=== PATIENT | female | born 1980 | race Caucasian/White ===

== ENCOUNTER 2023-03-09 15:26 | Emergency (ER) | payer OTHER ==
[~2023-03-09] VITALS: Ht 172.7 cm; Wt 87.0 kg
[2023-03-09 15:33] VITALS: TEMP 98.4; O2SAT 100
[2023-03-09] MEDS ORDERED: IBUP-2029 MT (17:55)
[2023-03-09] MEDS ORDERED: AMOX1TAB16 MT (17:55)
[2023-03-09 18:00] VITALS: BP 139/86; PULSE 93; RESP 18
[2023-03-09] MEDS ORDERED: KETOROLAC 30MG/ML VIAL IM ONE (18:00)
[2023-03-09] MEDS ORDERED: AMOXICILLIN/POTASSIUM CLAVULANATE 875/125MG TAB PO ONE (18:00)
== END 2023-03-09 19:01 | disposition home or self-care (01) ==
LOC: ER 15:26
DX: S61.255A Open bite of left ring finger without damage to nail, initial encounter (principal); E11.9 Type 2 diabetes mellitus without complications; W54.0XXA Bitten by dog, initial encounter; Y93.89 Activity, other specified; Y92.89 Other specified places as the place of occurrence of the external cause; Y99.8 Other external cause status
CPT/HCPCS: 99283; 96372; J1885

== ENCOUNTER 2024-01-07 17:19 | Emergency (ER) | payer OTHER ==
[~2024-01-07] VITALS: Ht 177.8 cm; Wt 100.0 kg
[~2024-01-07 17:19] MED LIST: AMOX1TAB16 MT; IBUP-2029 MT
[2024-01-07 17:21] VITALS: O2SAT 99
[2024-01-07] MEDS ORDERED: IBUPROFEN 600MG TABLET PO ONE (17:30)
[2024-01-07] MEDS: ACETAMINOPHEN 325MG TABLET PO ONE (17:48)
[2024-01-07] MEDS ORDERED: METH-653 MT (18:26)
[2024-01-07] MEDS ORDERED: IBUP-2029 MT (18:26)
[2024-01-07 18:44] VITALS: BP 118/86; PULSE 86; RESP 18; TEMP 98.1
== END 2024-01-07 18:47 | disposition home or self-care (01) ==
LOC: ER 17:32
DX: S20.219A Contusion of unspecified front wall of thorax, initial encounter (principal); E11.9 Type 2 diabetes mellitus without complications; Z91.013 Allergy to seafood; V89.2XXA Person injured in unspecified motor-vehicle accident, traffic, initial encounter; Y93.89 Activity, other specified; Y92.89 Other specified places as the place of occurrence of the external cause; Y99.8 Other external cause status
CPT/HCPCS: 71045; 99283

== ENCOUNTER 2025-06-19 05:04 | Inpatient (IN) | payer OTHER ==
[~2025-06-19] VITALS: Ht 165.1 cm; Wt 96.6 kg
[~2025-06-19 05:04] MED LIST changes: +IBUP-1455 MT; -IBUP-2029 MT; +METH-653 MT
[2025-06-19 05:09] VITALS: O2SAT 98
[2025-06-19 05:46] LABS: HEMATOCRIT. 40.1 % (36.0-48.0); HEMOGLOBIN. 13.1 g/dL (12.0-16.0); MEAN PLATELET VOLUME 8.5 fl (7.4-10.4); PLATELET 346 x1000/uL (130-400); RED BLOOD CELL COUNT 4.40 mill/uL (4.2-5.4); RED CELL DISTRIBUTION WIDTH 14.3 % (11.6-14.6)
[2025-06-19] MEDS: MORPHINE SULFATE 4 MG/ML INJ (FOR IV/IM USE) IV ONE ×2 (05:54→10:51)
[2025-06-19] MEDS: ONDANSETRON HCL 4MG/2ML INJ IV ONE ×2 (05:54→10:51)
[2025-06-19] MEDS: FAMOTIDINE 20MG/2ML VIAL IV ONE (05:54)
[2025-06-19] MEDS: SODIUM CHLORIDE 0.9% 1,000 ML IV ONE (05:58)
[2025-06-19 06:07] LABS: CREATININE 1.0 mg/dL (0.6-1.0); UREA NITROGEN BLOOD 15 mg/dL (9-23)
[2025-06-19 06:08] LABS: ETHANOL BLOOD < 10 mg/dL (<10)
[2025-06-19 06:09] LABS: ASPARTATE AMINOTRANSFERASE 881 IU/L (<34); BILIRUBIN DIRECT 0.6 mg/dL (<=3.0); BILIRUBIN TOTAL 1.0 mg/dL (0.1-1.0); PROTEIN TOTAL 7.8 g/dL (6.0-8.3); TROPONIN I HIGH SENSITIVITY < 4 ng/L (3.0-34)
[2025-06-19 06:40] LABS: HCG SCREEN NEGATIVE
[2025-06-19] MEDS: METRONIDAZOLE 500 MG PREMIX 100 ML IV NR (08:00)
[2025-06-19 08:35] LABS: CLARITY URINE CLOUDY (CLEAR); COLOR URINE ORANGE (YELLOW); GLUCOSE URINE NEGATIVE (NEGATIVE); KETONES URINE NEGATIVE (NEGATIVE); LEUKOCYTE ESTERASE URINE 2+ (NEGATIVE); NITRITE URINE NEGATIVE (NEGATIVE); OCCULT BLOOD URINE 3+ (NEGATIVE); PH URINE 6.0 (4.5-8.0); PROTEIN URINE TRACE (NEGATIVE); SPECIFIC GRAVITY URINE 1.013 (1.005-1.030); UROBILINOGEN URINE 1.0 E.U./dL (0.2-1.0)
[2025-06-19 08:51] LABS: BACTERIA URINE 1+; SQUAMOUS EPITHELIAL CELL URINE 1+ /lpf (RARE/1+); YEAST URINE NONE SEEN
[2025-06-19 09:03] LABS: LYMPHOCYTES % MANUAL 3.0 % (20.0-60.0); MONOCYTES % MANUAL 7.0 % (2.0-8.0); NEUTROPHILS % MANUAL 90.0 % (45.0-75.0); PLATELET ESTIMATE NORMAL
[2025-06-19 09:37] LABS: *AMPHETAMINES SCREEN URINE NEGATIVE (NEGATIVE); *BARBITURATES SCREEN URINE NEGATIVE (NEGATIVE); *BENZODIAZEPINES SCREEN URINE NEGATIVE (NEGATIVE); *COCAINE SCREEN URINE NEGATIVE (NEGATIVE); CANNABINOID URINE SCREEN NEGATIVE (NEGATIVE); ECSTASY MDMA SCREEN URINE NEGATIVE (NEGATIVE); METHADONE URINE SCREEN NEGATIVE (NEGATIVE); OPIATES URINE SCREEN PRESUMPTIVE POSITIVE (NEGATIVE); PHENCYCLIDINE URINE SCREEN NEGATIVE (NEGATIVE)
[2025-06-19] MEDS: CEFTRIAXONE 1GM/50ML 50 ML IV NR (10:51)
[2025-06-19] MEDS ORDERED: ACETAMINOPHEN 500MG TABLET PO NR (23:15)
[2025-06-19] MEDS: ACETAMINOPHEN 325MG TABLET PO NR (23:19)
[2025-06-20] MEDS: ACETAMINOPHEN 325MG TABLET PO ONE (09:20)
[2025-06-20] MEDS ORDERED: ONDANSETRON HCL 4MG/2ML INJ IV PRN (10:00)
[2025-06-20] MEDS ORDERED: PIPERACILLIN/TAZOBACTAM 3.375 G in DEXTROSE 5% WATER 50 ML IV SCH (10:00)
[2025-06-20] MEDS ORDERED: DEXTROSE 50% WATER 50ML SYRINGE IV PRN (10:00)
[2025-06-20] MEDS ORDERED: NALOXONE HCL 0.4MG/ML VIAL IV PRN (10:15)
[2025-06-20] MEDS: DEXT 5%/LACTATED RINGERS 1,000 ML IV SCH (10:18)
[2025-06-20] MEDS: PIPERACILLIN/TAZO 3.375G/50ML IV SCH (10:19)
[2025-06-20 11:56] VITALS: BP 103/69; PULSE 67; RESP 18; TEMP 36.9; O2SAT 94
[2025-06-20 12:00] VITALS: BP 116/68; PULSE 87; RESP 20; TEMP 36.7; O2SAT 97
[2025-06-20] MEDS: INSULIN LISPRO 100 UNITS/ML SUBCUT SCH (12:09)
[2025-06-20] MEDS: BLOOD SUGAR DIAGNOSTIC STRIP TEST SCH (12:09)
[2025-06-20 12:15] VITALS: BP 103/69; PULSE 84; RESP 20; TEMP 36.696
[2025-06-20] MEDS: MORPHINE SULFATE 2 MG/ML INJ (NOT FOR IM USE) IV PRN (15:02)
[2025-06-20 16:01] VITALS: BP 104/68; PULSE 79; RESP 18; TEMP 36.7; O2SAT 94
[2025-06-20 17:01] VITALS: BP 104/68; PULSE 79; RESP 18; TEMP 98.1
[2025-06-20 18:42] LABS: *AMPHETAMINES SCREEN URINE NEGATIVE (NEGATIVE); *BARBITURATES SCREEN URINE NEGATIVE (NEGATIVE); *BENZODIAZEPINES SCREEN URINE NEGATIVE (NEGATIVE); *COCAINE SCREEN URINE NEGATIVE (NEGATIVE); CANNABINOID URINE SCREEN NEGATIVE (NEGATIVE); ECSTASY MDMA SCREEN URINE NEGATIVE (NEGATIVE); METHADONE URINE SCREEN NEGATIVE (NEGATIVE); OPIATES URINE SCREEN NEGATIVE (NEGATIVE); PHENCYCLIDINE URINE SCREEN NEGATIVE (NEGATIVE)
[2025-06-20 18:44] LABS: CLARITY URINE CLEAR (CLEAR); GLUCOSE URINE NEGATIVE (NEGATIVE); KETONES URINE 1+ (NEGATIVE); LEUKOCYTE ESTERASE URINE TRACE (NEGATIVE); NITRITE URINE NEGATIVE (NEGATIVE); OCCULT BLOOD URINE 2+ (NEGATIVE); PH URINE 7.5 (4.5-8.0); PROTEIN URINE 1+ (NEGATIVE); SPECIFIC GRAVITY URINE 1.029 (1.005-1.030); UROBILINOGEN URINE 1.0 E.U./dL (0.2-1.0)
[2025-06-20 18:48] LABS: COLOR URINE RED (YELLOW); SQUAMOUS EPITHELIAL CELL URINE FEW /lpf (RARE/1+)
[2025-06-20 18:49] LABS: BACTERIA URINE 1+; RBC URINE 25-50 /hpf (0-2); WBC URINE 25-50 /hpf (0-2)
[2025-06-21] MEDS ORDERED: PIPERACILLIN/TAZO 3.375G/50ML IV SCH (06:00)
== END 2025-06-20 17:45 | disposition short-term general hospital (02) | DRG 444 ==
LOC: ER 05:04 → CANBEDREQ 11:56 → 7WST 06-20 09:29 → EDBEDREQ 06-20 09:31 → ENRESERV 06-20 09:43 → CANRESERV 06-20 09:43 → EDBEDREQSVC 06-20 10:03 → ENRESERV 06-20 10:06
PROVIDERS: ADMIT Student in an Organized Health Care Education/Training Program; ATTEND Student in an Organized Health Care Education/Training Program
DX: K81.0 Acute cholecystitis (principal); K85.10 Biliary acute pancreatitis without necrosis or infection; E11.9 Type 2 diabetes mellitus without complications; E66.9 Obesity, unspecified; Z68.35 Body mass index [BMI] 35.0-35.9, adult
CPT/HCPCS: 36415; 74176; 74181; 76705; 80048; 80076; 80305; 80320; 81003; 82962; 84478; 84484; 84703; 85025; 93005; 96365; 96375; 99285; A4606; J0696; J1308; J2270; J2405; J2543; J3490; J7030; G0480